=== PATIENT | male | born 2000 | race American Indian/Alaskan Native ===

== ENCOUNTER 2021-04-06 10:29 | Emergency (ER) | payer MEDICAID, OTHER ==
[2021-04-06 10:59] VITALS: BP 110/80
--- NOTE | 2021-04-06 11:25 | Emergency Department Report ---
Chief Complaint: Sore Throat Stated Complaint: SORE THROAT Time Seen by Provider: 04/06/21 11:20 - HPI History of Present Illness: 20-year-old -[place] male presents to the emergency room complaining of increased phlegm in the back of his throat. Patient states is been going on for about 3 days. Reports has tried Mucinex in the past with no relief. Patient does admit that he smokes marijuana. States that sometimes the phlegm is dark. - Exam Vital Signs: Vital Signs 04/06/21 10:58 Temperature 99.4 F Pulse Rate 83 Respiratory 16 Rate Blood Pressure 110/80 O2 Sat by Pulse 99 Oximetry Physical Exam: General: Awake, appropriately interactive, no acute distress. Neck: Supple. Full range of motion intact. Tonsils are nonerythematous nonedematous no exudate appreciated Cardiovascular: Normal peripheral perfusion. Pulmonary: No respiratory distress. Patient is speaking normally without use of accessory muscles. Skin: No apparent rashes or lesions. Neurological: No facial asymmetry. Speech is clear. Follows commands. Patient is alert and oriented. Musculoskeletal: Full range of motion, . Able to bear weight and ambulate without difficulty. Distal neurovascular and motor/sensory function is intact. Psych: Cooperative. Appropriate mood and affect. MSE screening note: Focused history and physical exam performed. Due to findings the following was ordered: 20-year-old -[place] male presents to the emergency room complaining of increased phlegm in the back of his throat. Patient states is been going on for about 3 days. Reports has tried Mucinex in the past with no relief. Patient does admit that he smokes marijuana. States that sometimes the phlegm is dark. Recommend patient to stop smoking marijuana. Increase his water intake. Follow-up with a primary care provider. Try taking [id number] Claritin or Zyrtec ED Disposition for MSE Disposition: HOME / SELF CARE / HOMELESS Is pt being admited?: No Does the pt Need Aspirin: No Condition: Stable Additional Instructions: Recommend patient to stop smoking marijuana. Increase his water intake. Follow-up with a primary care provider. Try taking [id number] Claritin or Zyrtec Referrals: FUENTES YOU MD [Staff Physician] - 3-5 Days Forms: Work/School Release Form(ED)
== END 2021-04-06 12:04 | disposition home or self-care (01) ==
LOC: ED 10:29
DX: R09.3 Abnormal sputum (principal); Z91.018 Allergy to other foods
CPT/HCPCS: 99282